=== PATIENT | male | born 1955 | race Caucasian/White ===

== ENCOUNTER 2018-03-20 21:38 | Emergency (ER) | payer OTHER ==
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
== END 2018-03-20 22:59 | disposition home or self-care (01) ==
LOC: ER 21:38
DX: Z04.3 Encounter for examination and observation following other accident (principal); F10.920 Alcohol use, unspecified with intoxication, uncomplicated; W01.0XXA Fall on same level from slipping, tripping and stumbling without subsequent striking against object, initial encounter; Y92.410 Unspecified street and highway as the place of occurrence of the external cause; F17.210 Nicotine dependence, cigarettes, uncomplicated
CPT/HCPCS: 99282